=== PATIENT | male | born 1980 | race Caucasian/White ===

== ENCOUNTER 2018-02-12 12:52 | Emergency (ER) | payer MEDICARE, OTHER ==
[2018-02-12] MEDS: HYDROCODONE/APAP (10/325) TAB PO (15:07)
== END 2018-02-12 17:55 | disposition home or self-care (01) ==
LOC: FTE 12:52
DX: S42.025A Nondisplaced fracture of shaft of left clavicle, initial encounter for closed fracture (principal); S22.32XA Fracture of one rib, left side, initial encounter for closed fracture; F17.210 Nicotine dependence, cigarettes, uncomplicated; V29.60XA Unspecified motorcycle rider injured in collision with unspecified motor vehicles in traffic accident, initial encounter
CPT/HCPCS: 70450; 71045; 72125; 73000; 73030; 99284; 99284-25

== ENCOUNTER 2018-02-12 21:14 | Emergency (ER) | payer MEDICARE, OTHER | END 2018-02-13 05:37 | disposition home or self-care (01) | LOC: E/R 02-13 05:37 | DX: S05.12XA Contusion of eyeball and orbital tissues, left eye, initial encounter (principal); R40.2142 Coma scale, eyes open, spontaneous, at arrival to emergency department; R40.2362 Coma scale, best motor response, obeys commands, at arrival to emergency department; R40.2252 Coma scale, best verbal response, oriented, at arrival to emergency department; F10.920 Alcohol use, unspecified with intoxication, uncomplicated; F17.210 Nicotine dependence, cigarettes, uncomplicated; W18.39XA Other fall on same level, initial encounter; Y92.9 Unspecified place or not applicable | CPT/HCPCS: 70450; 71045; 72125; 73000; 73030; 99283; 99284-25 ==

== ENCOUNTER 2018-06-18 18:12 | Emergency (ER) | payer MEDICARE, OTHER ==
[2018-06-18] MEDS: TRIMETHOPRIM/SULFAMETHOX (DS) TAB PO (19:42)
[2018-06-18] MEDS: IBUPROFEN 800 MG TAB PO (19:42)
[2018-06-18] MEDS: CEPHALEXIN 500 MG CAP PO (19:42)
== END 2018-06-18 19:57 | disposition home or self-care (01) ==
LOC: E/R 18:12
DX: N45.4 Abscess of epididymis or testis (principal); F17.210 Nicotine dependence, cigarettes, uncomplicated
CPT/HCPCS: 99283

== ENCOUNTER 2019-01-13 10:11 | Emergency (ER) | payer MEDICARE, OTHER ==
[2019-01-13] MEDS: ONDANSETRON (ODT) 4 MG TAB ODT (10:51)
[2019-01-13] MEDS: morphine 10 MG INJ IM (10:51)
== END 2019-01-13 12:09 | disposition home or self-care (01) ==
LOC: FTE 10:11
DX: M54.9 Dorsalgia, unspecified (principal); F17.210 Nicotine dependence, cigarettes, uncomplicated
CPT/HCPCS: 72072; 72100; 96372; 99284-25

== ENCOUNTER 2019-02-23 08:08 | Emergency (ER) | payer MEDICARE, OTHER ==
[2019-02-23 08:30] LABS: ADD MAN DIFF? NO
[2019-02-23 08:32] LABS: BASOPHILS % 0.4 % (0.0-2.0); EOSINOPHILS % 0.3 % (0.0-7.0); HEMATOCRIT 31.5 % (42.0-52.0); HEMOGLOBIN 9.7 g/dl (14.0-18.0); LYMPHOCYTES # 1.5 10^3/ul (0.8-2.9); LYMPHOCYTES % 13.4 % (15.0-51.0); MEAN CORPUSCULAR HEMOGLOBIN 27.2 pg (29.0-33.0); MEAN CORPUSCULAR HGB CONC 30.8 g/dl (32.0-37.0); MEAN CORPUSCULAR VOLUME 88.2 fl (82.0-101.0); MEAN PLATELET VOLUME 10.1 fl (7.4-10.4); MONOCYTES % 9.4 % (0.0-11.0); NEUTROPHIL # 8.3 10^3/ul (1.6-7.5); NEUTROPHILS % 76.1 % (39.0-77.0); PLATELET COUNT 368 10^3/UL (140-415); RED BLOOD COUNT 3.57 10^6/ul (4.70-6.10); RED CELL DISTRIBUTION WIDTH 14.5 % (11.5-14.5)
[2019-02-23 08:32] LABS: WHITE BLOOD COUNT 10.9 10^3/ul (4.8-10.8)
[2019-02-23 08:59] LABS: ALANINE AMINOTRANSFERASE 19 IU/L (13-69); ALBUMIN 4.1 g/dl (3.3-4.9); ALBUMIN/GLOBULIN RATIO 0.85; ALKALINE PHOSPHATASE 87 IU/L (42-121); ANION GAP 8 (5-13); ASPARTATE AMINO TRANSFERASE 23 IU/L (15-46); BILIRUBIN,INDIRECT 0.5 mg/dl (0-1.1); BILIRUBIN,TOTAL 0.5 mg/dl (0.2-1.3); BLOOD UREA NITROGEN 23 mg/dl (7-20); CALCIUM 9.6 mg/dl (8.4-10.2); CARBON DIOXIDE 28 mmol/L (21-31); CHLORIDE 102 mmol/L (97-110); CREATININE 0.83 mg/dl (0.61-1.24); Estimated GFR > 60 mL/min (>60); GLUCOSE 152 mg/dl (70-220); SODIUM 138 mmol/L (135-144); TOTAL PROTEIN 8.9 g/dl (6.1-8.1)
[2019-02-23 09:13] LABS: ACETAMINOPHEN < 10.0 ug/ml (10.0-30.0); SALICYLATE < 1.0 mg/dl (5.0-30.0)
== END 2019-02-23 10:47 | disposition home or self-care (01) ==
LOC: E/R 08:08
DX: T40.1X1A Poisoning by heroin, accidental (unintentional), initial encounter (principal); F17.210 Nicotine dependence, cigarettes, uncomplicated
CPT/HCPCS: 80053; 80307; 85025; 99283